=== PATIENT | female | born 1955 | race Caucasian/White ===

== ENCOUNTER 2025-09-21 09:39 | Outpatient (CLI) | payer MEDICARE, SELFPAY ==
--- NOTE | 2025-09-21 11:54 | P.ANES_ITS ---
Anesthesia Charges Start Date/Time Anesthesia Start Date: 09/21/25 Anesthesia Start Time: 11:30 Stop Date/Time Anesthesia Stop Date: 09/21/25 Anesthesia Stop Time: 11:52 Coding CPT Codes CPT Codes: RASHEED LWR INTST SCR COLSC - 86227 ([id number]) P2 - PATIENT W/MILD SYST DISEASE, QK - BRANCH MANAGER TRAINEE 2-4 CNCRNT ANES PROC, QX - DIRECTOR OF WOMEN'S SERVICES SVC W/ MD MED DIRECTION
--- NOTE | 2025-09-21 11:54 | W.ANESCHARGE ---
Anesthesia Charges Start Date/Time Anesthesia Start Date: 09/21/25 Anesthesia Start Time: 11:30 Stop Date/Time Anesthesia Stop Date: 09/21/25 Anesthesia Stop Time: 11:52 Coding CPT Codes CPT Codes: RASHEED LWR INTST SCR COLSC - [id number] ([id number]) P2 - PATIENT W/MILD SYST DISEASE, QK - SUPERVISOR RICE MILLING 2-4 CNCRNT ANES PROC, QX - UNSTACKER SVC W/ MD MED DIRECTION
--- NOTE | 2025-09-21 12:10 | P.ANES_ITS ---
Anesthesia Charges Start Date/Time Anesthesia Start Date: 09/21/25 Anesthesia Start Time: 11:30 Stop Date/Time Anesthesia Stop Date: 09/21/25 Anesthesia Stop Time: 11:52 Coding CPT Codes CPT Codes: RASHEED LWR INTST SCR COLSC - [id number] ([id number]) P2 - PATIENT W/MILD SYST DISEASE, QK - PELLETIZER 2-4 CNCRNT ANES PROC, QX - FABRICATOR ARTIFICIAL BREAST SVC W/ MD MED DIRECTION
--- NOTE | 2025-09-21 12:10 | W.ANESCHARGE ---
Anesthesia Charges Start Date/Time Anesthesia Start Date: 09/21/25 Anesthesia Start Time: 11:30 Stop Date/Time Anesthesia Stop Date: 09/21/25 Anesthesia Stop Time: 11:52 Coding CPT Codes CPT Codes: RASHEED LWR INTST SCR COLSC - [id number] ([id number]) P2 - PATIENT W/MILD SYST DISEASE, QK - SEWING MACHINE OPERATOR ZIPPER 2-4 CNCRNT ANES PROC, QX - MULTISKILL OPERATOR SVC W/ MD MED DIRECTION
== END 2025-09-21 09:40 | disposition home or self-care (01) ==
PROVIDERS: PCP Family Medicine; Visit Provider Internal Medicine Gastroenterology
DX: Z86.0101 Personal history of adenomatous and serrated colon polyps (principal)
CPT/HCPCS: 00812; 45378; J2704